=== PATIENT | male | born 1935 | race Caucasian/White ===

== ENCOUNTER 2024-03-24 20:42 | Inpatient (IN) | payer MEDICARE, SELFPAY ==
[2024-03-24] VITALS (7 sets, daily range): BP systolic 123–170; BP diastolic 71–105; BMI 23.2
--- NOTE | 2024-03-24 16:17 | ED.GENMED ---
History of Present Illness
General
Chief Complaint: Male Genito-Urinary Symptoms
Source: patient and family
Exam Limitations: none
Time Seen by Provider: 03/24/24 15:58
Nursing documentation reviewed up to this point in time: agreed with
Travel History
Have you had any contact with someone who has COVID-19?: No
Do you have any symptoms of coronavirus? Fever > 100 degrees, chills, cough, shortness of breath, sore throat, loss of taste or smell, muscle aches, or headache?: No
History of Present Illness
History of Present Illness:
Patient is an 88-year-old male with past medical history of prostate cancer with chronic Beach, chronic heart failure history of alcohol abuse anemia hip fracture hyperlipidemia hypertension anxiety pressure presents to the ER complaining of lower
abdominal pain and burning at the tip of the penis for past 4 days. No fevers denies back pain. he does feel that his beach catheter is draining normally
Patient lives alone. Daughter at bedside. Patient denies any fever chills nausea vomiting.
Past History
Past History
ED Past Medical History: Cancer (Prostate), HTN and Hypercholesterolemia
ED Past Surgical History: Other
Social History
Tobacco: Non-smoker
Alcohol: None
Drug: None
Personal:
Living: with family
Employment: Retired
Family History
Family History: Other
Review of Systems
Review of Systems
Allergies reviewed?: Yes
Other source history: family
All Other Systems: ROS reviewed and negative except as documented in HPI and ROS
Constitutional: Reports no symptoms; Denies fever, fatigue or chills
EENT: Reports no symptoms
Respiratory: Reports no symptoms
Cardiac: Reports no symptoms
ABD/GI: Reports abdominal pain (lower abdominal burning )
: Reports other (burning at tip of penis catheter site )
Skin: Reports no symptoms
Neurological: Reports no symptoms
Psychiatric: Reports no symptoms
Phy Exam
General Physical Exam
General Presentation: no apparent distress
General age: appears stated age
General Skin: warm and dry
General Habitus: normal
General Mental: alert
General Hydration: appears well hydrated
Cardiovascular Exam
Cardiovascular Exam: regular rate/rhythm, no murmur and normal peripheral pulses
Pulmonary Exam
Pulmonary Exam: lungs clear and no respiratory distress
Gastrointestinal Exam
Gastrointestinal Exam: soft and other (mild suprapubic tenderness )
Genitourinary Exam Male
Exam Male: circumcised and other (beach in place )
Neurological Exam
Neurological Exam: alert
Musculoskeletal Exam
Musculoskeletal Exam: full ROM
Skin Exam
Skin Exam: normal color and warm/dry
Psychiatric Exam
Psychiatric Exam: normal mood/affect
Course
Orders/Labs/Results
Orders:
Orders
03/24/24 Breakfast
Cholesterol Lowering
Cholesterol Lowering: Sodium, 2 Gram
03/24/24 16:18
CBC/With Diff [Complete Blood Count/With Diff] Urgent
CMP [Comprehensive Metabolic Panel] Urgent
Vitamin D, 25-Oh Urgent
03/24/24 16:50
Urine Culture Reflexed from UA [Urinalysis Reflex To Culture] Urgent
Date Specimen was Collected: 03/24/24
Time Specimen was Collected: 16:48
Urine Microscopic Reflex Cult Urgent
Urine Culture Urgent
AUTUMN Source: U
Specimen Description:
Date Specimen was Collected: 03/24/24
Time Specimen was Collected: 16:48
03/24/24 18:42
CefTRIAXone [Rocephin] 1,000 mg IV NOW STA
03/24/24 18:52
Lactic Acid Q4H
Comment: CANCEL 2nd LACTIC ACID IF 1st LACTIC ACID IS LESS THAN 2
Blood Culture Q30M
AUTUMN Source: Blood/Venous
Specimen Description:
Blood Culture Q30M
AUTUMN Source: Blood/Venous
Specimen Description:
03/24/24 19:26
0.9% Sodium Chloride 1000 ml [Nss] 1,000 ml IV BOLUS
03/24/24 20:09
Vitamin D, 25-OH Stat
03/24/24 20:12
Add On- LAB Urgent
Tests Added?: PTH/ vitamin d/25 OH
03/24/24 20:19
Admit/Transfer Patient As Directed
Co-Sign Provider:
Level of Care: Inpatient admission
Assign to:: Medical/Surgical
Physician / Group: [facility]
Diagnosis: UTI
Reason for Hospitalization: UTi
Expected length of stay greater than two midnights?: Yes
ELOS- Estimated Length of Stay in days: 3
I certify the patient meets the requirements for IP care: Yes
03/24/24 20:20
Code Status As Directed
Resuscitation Status: Full Code
03/24/24 22:00
PTH [Intact PTH Includes Calcium] Stat
03/24/24 22:26
0.9% Sodium Chloride 1000 ml [Nss] 1,000 ml IV 80 mls/hr
Acetaminophen [Tylenol] 650 mg PO Q4HPRN PRN
Bisacodyl [Dulcolax] 10 mg RECTAL [id number] PRN
Docusate W/Senna [Senokot-S] 1 tablet PO BIDPRN PRN
Polyethylene Glycol Powder [Miralax] 17 grams PO DAILYPRN PRN
03/24/24 22:26
Activity As Directed
Activity Level: As Tolerated
Vital Signs As Directed
Frequency: Per unit guidelines
DX Deep Vein Thrombosis Video Routine
03/24/24 22:45
Lactic Acid Q4H
Comment: CANCEL 2nd LACTIC ACID IF 1st LACTIC ACID IS LESS THAN 2
03/25/24 00:00
Cefepime HCl [Maxipime] 1,000 mg IV Q12H
03/25/24 06:00
Basic Metabolic Panel IN AM
Complete Blood Count/No Diff IN AM
Occupational Therapy Consult [Ot Eval And Treat] IN AM
Physical Therapy Consult [Pt Eval And Treat] IN AM
Activity Level: As Tolerated
03/25/24 08:00
Aspirin Low Dose EC [Aspir Low (Enteric Coated)] 81 mg PO DAILY
Carvedilol [Coreg] 3.125 mg PO BID
Heparin 5,000 units SC Q12
03/25/24 18:00
Atorvastatin [Lipitor] 10 mg PO QPM
03/26/24 06:00
Basic Metabolic Panel IN AM
Complete Blood Count/No Diff IN AM
03/27/24 06:00
Basic Metabolic Panel IN AM
Complete Blood Count/No Diff IN AM
03/28/24 06:00
Basic Metabolic Panel IN AM
Complete Blood Count/No Diff IN AM
03/29/24 06:00
Basic Metabolic Panel IN AM
Complete Blood Count/No Diff IN AM
Abnormal Lab Results
03/24/24 03/24/24 03/24/24
16:18 16:50 18:52
WBC 17.1 H 10^3/uL
(4.8-10.8)
RBC 4.63 L 10^6/uL
(4.70-6.10)
Plt Count 422 H 10^3/uL
(130-400)
Abs Immat Gran (auto) 0.1 H 10^3/uL
(0-0.05)
Absolute Neuts (auto) 14.8 H 10^3/uL
(1.4-6.5)
Absolute Lymphs (auto) 0.9 L 10^3/uL
(1.2-3.4)
Absolute Monos (auto) 1.3 H 10^3/uL
(0.1-0.6)
Neutrophils % 86.5 H %
(42.2-75.2)
Lymphocytes % 5.0 L %
(20.5-51.1)
Sodium 132 L mmol/L
(135-145)
Potassium 5.4 H mmol/L
(3.5-5.1)
Chloride 94 L mmol/L
(98-107)
BUN 29 H mg/dl
(9-20)
Creatinine 1.4 H mg/dL
(0.7-1.3)
Glucose 138 H mg/dl
(70-99)
Lactic Acid 2.6 H mmol/L
(0.7-2.0)
Calcium 11.0 H mg/dl
(8.4-10.2)
Urine Ketones Trace A
(Negative)
Ur Occult Blood Reflex 4+ A
(Negative)
Urine Nitrite (Reflex) Positive A
(Negative)
Leukocyte Esterase Rfl 2+ A
(Negative)
Urine RBC 30-40 A /HPF
(0-2)
Urine WBC (Reflex) 26-30 A /HPF
(0-5)
Urine Bacteria (Reflex) Moderate A
(Negative)
Urine Albumin (Reflex) 1+ A
(Neg - Trace)
03/24/24 16:18
03/24/24 16:18
Vital Signs
Initial and Last Documented VS:
Initial Vital Signs
Temp Pulse Resp BP Pulse Ox
98.4 F 111 18 139/95 98
03/24/24 13:27 03/24/24 13:27 03/24/24 13:27 03/24/24 13:27 03/24/24 13:27
Last Documented Vital Signs
Temp Pulse Resp BP Pulse Ox
98.3 F 91 24 123/80 98
03/24/24 22:39 03/24/24 22:39 03/24/24 22:39 03/24/24 22:39 03/24/24 22:39
[employer] consulted with Physician
[employer] consulted with physician?: Yes
Name of Physician Consulted: Nathan
MDM/Problems Addressed
Differential Diagnosis Includes:
not limited to: UTI , dehydration
MDM/Problems Addressed:
Patient is an 88 old male who presents to the ER complaining of burning at his penis where catheter site is and lower abdominal burning discomfort. Patient had 170 mL of urine in his bladder with his present Beach in place. New catheter was
inserted patient does have an obvious UTI. He is afebrile however his white count is elevated at 17,000. His BUN/creatinine is elevated which is a change from prior labs. Potassium of 5.4. I spoke with patient and his daughter. Patient is
having more more difficulty getting around daughter concern for falls. With UTI and infection with increased risk of falling will admit for IV antibiotics hydration and physical therapy
*Radiology
Radiology exam reviewed: radiology read reviewed
*Pulse Oximetry
Patient hypoxic: no
*Critical Care Note
Total Time (30-74mins, 75-104mins- exclusive of procedures): Not Applicable
ED Attending Note
-
Portions of this chart may have been created with voice recognition software.� Occasional wrong word or��sound alike� substitutions may have occurred due to the inherent limitations of voice recognition software.
Discharge Plan
Departure
Patient Disposition: Admit
Date of Disposition: 03/24/24
Time of Disposition: 18:43
Admit to: Med/Surg
Admit to doctor: hospitalist
Presentation/result/management discussed w/ accepting MD/DO: Hospitalist
Patient with high blood pressure during this ER visit?: Yes
Condition: Fair
Covid-19: Not Applicable
Discharge Problem:
Acute UTI, Acute dehydration
Interventions
Interventions:
*Risk Screen - Suicide Last Done: 03/24/24 13:27
*General Assessment Last Done: 03/24/24 13:27
*Neglect/Abuse Screening Last Done: 03/24/24 13:27
ED- Fall Risk Assessment Last Done: 03/24/24 15:44
*ED COVID-19 Vaccine History Last Done: 03/24/24 13:27
*Nursing Disposition Last Done: 03/24/24 22:18
ED-Male Genitourinary Assessment Last Done: 03/24/24 15:28
Discharge Date and Time
Discharge Date/Time: 03/24/24 22:19
[2024-03-24 16:46] LABS: % Basophils 0.4 % (0-2); % Immature Granulocytes 0.5 % (0-0.5); % Monocytes 7.6 % (1.7-9.3); % Neutrophils 86.5 % (42.2-75.2); Absolute Basophils 0.1 10^3/uL (0-0.2); Absolute Immature Granulocytes 0.1 10^3/uL (0-0.05); Absolute Lymphocytes 0.9 10^3/uL (1.2-3.4); Absolute Monocytes 1.3 10^3/uL (0.1-0.6); Absolute Neutrophils 14.8 10^3/uL (1.4-6.5); Hemoglobin 13.8 g/dL (13.0-18.0); Mean Corp Hgb Conc. 33.7 g/dL (33.0-37.0); Mean Corpuscular Hgb 29.8 pg (27.0-31.0); Mean Corpuscular Volume 88.6 fL (80.0-94.0); Mean Platelet Volume 8.9 fL (7.4-10.4); Nucleated Red Blood Cells % 0 % (-); Platelet Count 422 10^3/uL (130-400); Red Blood Cell Count 4.63 10^6/uL (4.70-6.10); Red Cell Dist. Width 14.4 % (11.5-14.5); White Blood Cell Count 17.1 10^3/uL (4.8-10.8)
[2024-03-24 16:58] LABS: ALT (SGPT) 19 U/L (0-50); AST (SGOT) 32 U/L (17-59); Albumin 4.2 g/dl (3.5-5.0); Alkaline Phosphatase 121 U/L (38-126); Blood Urea Nitrogen 29 mg/dl (9-20); Carbon Dioxide 27 mmol/L (22-30); Chloride 94 mmol/L (98-107); Glucose 138 mg/dl (70-99); Potassium 5.4 mmol/L (3.5-5.1); Sodium 132 mmol/L (135-145); Total Bilirubin 0.7 mg/dl (0.2-1.3); Total Protein 7.1 g/dl (6.3-8.2); eGFR 48.95
[2024-03-24 17:04] LABS: Urine Albumin 1+ (Neg - Trace); Urine Bilirubin Negative (Negative); Urine Character Very Cloudy (Clear); Urine Color Yellow; Urine Glucose Negative (Negative); Urine Ketone Trace (Negative); Urine Leukocyte 2+ (Negative); Urine Nitrite Positive (Negative); Urine Occult Blood 4+ (Negative); Urine Urobilinogen Negative (Neg - 1+)
[2024-03-24 17:17] LABS: Urine Amorphous Seen
[2024-03-24 17:18] LABS: Urine Bacteria Moderate (Negative); Urine Red Blood Cell 30-40 /HPF (0-2); Urine White Cell 26-30 /HPF (0-5)
[2024-03-24] MEDS: ROCEPHIN 1000 MG IV (18:53)
--- NOTE | 2024-03-24 19:11 | PHANOTE ---
03/24/2024, [employer] rec tech, spoke to pt.'s daughter to obtain pt.'s med. history; per daughter, pt. is prescribed Lisinopril 20 mg daily; however, pt. does not take this med. and it has been a long time since they have taken it.
[2024-03-24 19:19] LABS: Lactic Acid 2.6 mmol/L (0.7-2.0)
[2024-03-24] MEDS: NSS 1000 IV ×2 (19:27→23:28)
--- NOTE | 2024-03-24 19:49 | HPS.HSE ---
Family Physician
-
Family Physician: Whitney Myers MD
Chief Complaint
-
lower abdominal pain
History of Present Illness
88 year old with PMH for anxiety, prostate ca, CHF, anemia, HLD, htn presented to us with generalized weakness, sleeping more than usual, lower abdominal cramps associated with pain at the tip of penis for past four days. he has chronic beach cath.
he noticed cloudy urine in the Beach. he noticed pussy urine around the penis. patient also complained of diarrhea every other day. denied fever, chills, chest pain, sob. patient complained of SEGUNDO and dizzy. denied an/v.
positive UA in ER. gave a dose of ceftriaxone. admitting for further managment.
Medical History
Past Medical History
Past Medical History: Reports Other
Additional Past Medical History:
chronic pain
hld
depression
lumbar stenosis
htn
anxiety
squamous cell carcinoma
prostate ca
Past Surgical History: Reports Other
Additional Past Surgical History:
right knee replacemet
Social History
Tobacco: Former Smoker
Alcohol: Former
Drug: None
Personal: Single
Living: Alone
Family History
Family History: Not pertinent
Allergies / Home Medications
Allergies reflects when Allergies were last updated in [facility].
Home Medications with original date entered in [facility]
Allergy/Medication List:
Allergies
Allergy/AdvReac Type Severity Reaction Status Date / Time
No Known Drug Allergies Allergy Unknown Verified 03/24/24 13:27
Home Medications
Blanchard Xl 1 dose PO DAILYPRN PRN supplement 03/24/24
Prevagen 1 dose PO DAILYPRN PRN supplement 03/24/24
Total Beets Supplement 2 tab PO BID 03/24/24
Vitamin C 1 dose PO DAILYPRN PRN supplement 03/24/24
aspirin 325 mg tablet 325 mg PO DAILY PRN mild pain 03/24/24
aspirin 81 mg tablet,delayed release 81 mg PO DAILY 03/24/24
atorvastatin 10 mg tablet 10 mg PO QPM 03/24/24
bismuth subsalicylate 262 mg/15 mL oral suspension (Pepto-Bismol) 524 mg PO DAILYPRN PRN stomach issues 03/24/24
carvedilol 3.125 mg tablet 3.125 mg PO BID 03/24/24
cholecalciferol (vitamin D3) 1 dose PO DAILYPRN PRN supplement 03/24/24
docusate sodium 100 mg tablet (Stool Softener) 150 mg PO QPM 03/24/24
hydrocodone 5 mg-acetaminophen 300 mg tablet 1 - 2 tab PO Q6H PRN severe pain 03/24/24
iron 1 dose PO DAILYPRN PRN supplement 03/24/24
loratadine 10 mg tablet (Claritin) 10 mg PO DAILY 03/24/24
magnesium hydroxide 400 mg/5 mL oral suspension (Milk of Magnesia) 30 ml PO DAILY PRN constipation 03/24/24
multivitamin with minerals-folic acid 80 mcg chewable tablet (Centrum Adult 50 Plus) 1 tab PO DAILY 03/24/24
naphazoline 0.012 % eye drops 1 drp ophthalmic (eye) DAILYPRN PRN eye irritation 03/24/24
selenium 1 dose PO DAILYPRN PRN supplement 03/24/24
sennosides 8.6 mg tablet (senna) 17.2 mg PO BID 03/24/24
venlafaxine 225 mg tablet,extended release 24 hr 225 mg PO DAILY 03/24/24
Review of Systems
-
Constitutional: Reports No Symptoms
EENT: Reports No Symptoms
Respiratory: Reports No Symptoms
Cardiac: Reports No Symptoms
Abdomen/GI: Reports Abdominal Pain and Diarrhea
: Reports Dark Urine and Beach
Musculoskeletal: Reports No Symptoms
Skin: Reports No Symptoms
Neurological: Reports No Symptoms
Endocrine: Reports No Symptoms
Hematologic/Lymphatic: Reports No Symptoms
Psych: Reports No Symptoms
Physical Exam
Vital Signs
Vital Signs
Temp Pulse Resp BP Pulse Ox
97.6 F 93 18 162/71 98
03/24/24 15:28 03/24/24 18:05 03/24/24 18:05 03/24/24 18:05 03/24/24 18:05
Physical Exam
General: Well Developed, Well Nourished and No Apparent Distress
HEENT: NormoCephalic, Moist mucous membranes and Atraumatic
Respiratory: Clear
Cardiac: S1/S2 and Regular Rhythm; No Murmur or Rub
GI: Soft, Non Tender, Non Distended and Normal Bowel Sounds; No Organomegaly
Rectal: Deferred by Provider
Musculoskeletal: No Clubbing, No Cyanosis and No Edema
Skin: No Rash
Neuro: AO x 3 and Nonfocal/grossly intact
Psych: Calm
Laboratory Results
-
03/24/24 16:18
03/24/24 16:18
Laboratory Results
Lactic Acid 2.6 mmol/L (0.7-2.0) H 03/24/24 18:52
Total Bilirubin 0.7 mg/dl (0.2-1.3) 03/24/24 16:18
AST 32 U/L (17-59) 03/24/24 16:18
ALT 19 U/L (0-50) 03/24/24 16:18
Alkaline Phosphatase 121 U/L (38-126) 03/24/24 16:18
Data Reviewed
-
Lab Data: Labs Reviewed by me
Impression/Plan
-
#catheter associated urinary tract infection
#sepsis as evident by wbc 17.1, lactic 2.6
-normal saline continued
-blood and urine culture sent from ER
-iv ceftriaxone in ER
-will initiate on IV cefepime
-hxt of E coli, pseudomonas UTI
-Tylenol prn for fever
#generalized weakness likely from UTI
-PT/OT consulted
-will hold hydrocodone
#acute on chornic hyponatremia//hyperkalemia/acute kidney injury/hypercalcemia likely dehydration
-na 131, k 5.4, cr 1.4
-normal saline continued
-monitor BMp in am
-obtain PTH and vitamin D
#diarrhea likely viral
-obtain stool culture if continued to have diarrhea
#Chronic HFmrEF
-continue Coreg
#Prostate cancer status post Beach catheter placement
#Essential hypertension
-Coreg
#Hyperlipidemia: Cont statin
#Anxiety/Depression: Cont Effexor
#Ex-smoker
#full code
#DVT Prophylaxis
-heparin sq
--- NOTE | 2024-03-24 20:41 | W.PN.UPDATE ---
Update Note
Progress Note Update
This is an addendum to the H&P written by Alla Velázquez on 03/24/2024.
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
with burning with urination, lower abdominal pain for past few days with urinalysis consistent with catheter associated UTI.�
Check urine culture, blood cultures prior culture data shows prior Pseudomonas UTI, E. coli bacteremia sensitive to cefepime.� Labs show BIANKA, hypercalcemia, mild hyperkalemia.� Lopez catheter changed.� IV fluids, cefepime.� Check vitamin D, PTH
level to evaluate hypercalcemia.
[2024-03-24 21:32] LABS: Vitamin D, 25-OH*** 61.4 ng/mL (30-80)
--- NOTE | 2024-03-24 23:00 | PTCARENOTE ---
Pt transferred from ED with [facility]. Pt AAOX3, able to make needs known. Pt oriented to unit, call adams within reach. Will continue with current plan.
[2024-03-24] MEDS: STERILE WATER FOR INJECTION 10 ML IV (23:29)
[2024-03-24] MEDS: MAXIPIME 1000 MG IV (23:29)
[2024-03-24 23:42] LABS: Lactic Acid 1.1 mmol/L (0.7-2.0)
[2024-03-24 23:54] LABS: Calcium 9.9 mg/dl (8.4-10.2)
[2024-03-25 00:13] LABS: Vitamin D, 25-OH*** 64.7 ng/mL (30-80)
[2024-03-25 03:17] VITALS: BP 118/65
[2024-03-25 06:42] LABS: Hematocrit 35.1 % (39.0-52.0); Hemoglobin 11.5 g/dL (13.0-18.0); Mean Corp Hgb Conc. 32.8 g/dL (33.0-37.0); Mean Corpuscular Hgb 29.6 pg (27.0-31.0); Mean Corpuscular Volume 90.5 fL (80.0-94.0); Mean Platelet Volume 8.8 fL (7.4-10.4); Platelet Count 325 10^3/uL (130-400); Red Blood Cell Count 3.88 10^6/uL (4.70-6.10); Red Cell Dist. Width 14.6 % (11.5-14.5); White Blood Cell Count 10.8 10^3/uL (4.8-10.8)
[2024-03-25 07:17] LABS: Blood Urea Nitrogen 30 mg/dl (9-20); Calcium 9.8 mg/dl (8.4-10.2); Carbon Dioxide 24 mmol/L (22-30); Chloride 102 mmol/L (98-107); Estimated Creatinine Clearance 43 ml/min; Glucose 67 mg/dl (70-99); Potassium 4.1 mmol/L (3.5-5.1); Sodium 135 mmol/L (135-145)
[2024-03-25 07:46] VITALS: BP 136/64
[2024-03-25 08:37] LABS: Glucose - Point of Care 70 mg/dl (70-99)
[2024-03-25] MEDS: COREG 3.125 MG PO ×2 (08:37→19:57)
[2024-03-25] MEDS: HEPARIN 5000 UNITS SC ×2 (08:38→19:57)
[2024-03-25] MEDS: ASPIR LOW (ENTERIC COATED) 81 MG PO (08:38)
[2024-03-25] MEDS: EFFEXOR XR 225 MG PO (08:55)
[2024-03-25 10:36] VITALS: BMI 23.4
[2024-03-25 11:00] VITALS: BP 123/66; BP 98/85; PULSE 66; O2SAT 98
[2024-03-25 11:02] VITALS: BP 123/66; BP 98/85; O2SAT 98
[2024-03-25 11:41] LABS: Glucose - Point of Care 84 mg/dl (70-99)
[2024-03-25] MEDS: STERILE WATER FOR INJECTION 10 ML IV ×2 (12:08→23:28)
[2024-03-25] MEDS: NSS 1000 IV (12:08)
[2024-03-25] MEDS: MAXIPIME 1000 MG IV ×2 (12:20→23:28)
--- NOTE | 2024-03-25 13:17 | W.PN.HOSP.TC ---
Today's Communication/Plan
-
Monitor vital signs and see plan
Follow blood and urine culture
Monitor leukocytosis
Monitor renal function
Assessment / Plan
Assessment / Plan
General: Well Developed, Well Nourished and No Apparent Distress
HEENT: NormoCephalic, Moist mucous membranes and Atraumatic
Respiratory: Clear
Cardiac: S1/S2 and Regular Rhythm; No Murmur or Rub
GI: Soft, Non Tender, Non Distended and Normal Bowel Sounds; No Organomegaly
Rectal: Deferred by Provider
Musculoskeletal: No Clubbing, No Cyanosis and No Edema
Skin: No Rash
Neuro: AO x 3 and Nonfocal/grossly intact
Psych: Calm
catheter associated urinary tract infection
#severe sepsis as evident by wbc 17.1, lactic 2.6 2/2 above
-blood and urine culture pending
cw IV cefipime
-hxt of E coli, pseudomonas UTI
-Tylenol prn for fever
catheter exchanged on admission
#generalized weakness likely from UTI
-PT/OT consulted
-will hold hydrocodone
#acute on chornic hyponatremia//hyperkalemia/acute kidney injury/hypercalcemia likely dehydration
Monitor with fluids
Vitamin D normal, PTH pending
#Chronic HFmrEF
-continue Coreg
#Prostate cancer status post Lopez catheter placement
Follows up with Dr. Escalante outpatient
#Essential hypertension
-Coreg
#Hyperlipidemia: Cont statin
#Anxiety/Depression: Cont Effexor
#Ex-smoker
#full code
#DVT Prophylaxis
-heparin sq
I spent a total of 52 minutes with the patient or on the floor. More than 50% of this time involved counseling and coordination of care.
Anticipated Discharge: 24 - 48 hours
Subjective/Interval History
-
Date of Service: March 25, 2024
denies pain
Objective Data
-
Labs:
Laboratory Results
03/25/24
06:28
WBC 10.8
Hgb 11.5 L
Hct 35.1 L
Plt Count 325 D
Sodium 135
Potassium 4.1
Chloride 102
Carbon Dioxide 24
BUN 30 H
Creatinine 1.3
Glucose 67 L
Calcium 9.8
Vital Signs:
Vital Signs
Temp Pulse Resp BP Pulse Ox
97.9 F 77 18 136/64 96
03/25/24 07:46 03/25/24 07:46 03/25/24 07:46 03/25/24 07:46 03/25/24 07:46
I&O
03/24/24 03/25/24 03/26/24
06:59 06:59 06:59
Intake Total 200 / 200
Output Total 800 / 800
Balance -600 / -600
--- NOTE | 2024-03-25 15:23 | CM ---
Patient seen bedside, initial assessment completed. Patient resides in a multiple story home, four steps to enter. Patient resides independently, has a daughter and son nearby as support. Patient reports he has aids through [employer], 3 days a
week, assist with cleaning, cooking, etc. Patient has a rolling walker for ambulation. Patient reports he believes he has been to a SNF in the past, unsure where. Patient confirms PCP Whitney Myers, pharmacy [facility], [place], confirms prescription
coverage. Patient denies food insecurities at home. CM discussed PT recommendation of home health, patient agreebable, patient resides in [place], will send referrals to [facility].
Plan; home with VN, will send referrals to [place] [facility] through [facility].
[2024-03-25 15:50] VITALS: BP 141/71
[2024-03-25] MEDS: COLACE LIQUID 150 MG PO (17:00)
[2024-03-25] MEDS: LIPITOR 10 MG PO (17:01)
[2024-03-25] MEDS: NORCO 5/325 1 TABLET PO ×2 (17:02→23:28)
[2024-03-25] MEDS: SENOKOT 17.1999999999999993 MG PO (19:57)
[2024-03-25 23:00] VITALS: BP 137/68
[2024-03-26] MEDS: NSS 1000 IV (00:10)
[2024-03-26 00:35] VITALS: BP 137/68
[2024-03-26 04:10] LABS: Glucose - Point of Care 75 mg/dl (70-99)
[2024-03-26 05:42] VITALS: BMI 24.1
--- NOTE | 2024-03-26 06:18 | PTCARENOTE ---
pt blood sugar check was 75 at 4am. pt provided w/ snack. pt states he feels fine. pt has labs in am
[2024-03-26 06:20] LABS: % Basophils 0.7 % (0-2); % Eosinophils 1.6 % (0-6); % Immature Granulocytes 0.4 % (0-0.5); % Lymphocytes 14.4 % (20.5-51.1); % Monocytes 9.9 % (1.7-9.3); Absolute Basophils 0.1 10^3/uL (0-0.2); Absolute Eosinophils 0.1 10^3/uL (0-0.7); Absolute Lymphocytes 1.1 10^3/uL (1.2-3.4); Absolute Monocytes 0.7 10^3/uL (0.1-0.6); Absolute Neutrophils 5.4 10^3/uL (1.4-6.5); Hematocrit 33.3 % (39.0-52.0); Hemoglobin 10.7 g/dL (13.0-18.0); Mean Corp Hgb Conc. 32.1 g/dL (33.0-37.0); Mean Corpuscular Hgb 29.4 pg (27.0-31.0); Mean Corpuscular Volume 91.5 fL (80.0-94.0); Mean Platelet Volume 9.2 fL (7.4-10.4); Nucleated Red Blood Cells % 0 % (-); Platelet Count 317 10^3/uL (130-400); Red Blood Cell Count 3.64 10^6/uL (4.70-6.10); Red Cell Dist. Width 14.7 % (11.5-14.5); White Blood Cell Count 7.4 10^3/uL (4.8-10.8)
[2024-03-26] MEDS: NORCO 5/325 1 TABLET PO ×2 (06:38→11:47)
[2024-03-26 06:51] LABS: Blood Urea Nitrogen 31 mg/dl (9-20); Calcium 9.3 mg/dl (8.4-10.2); Carbon Dioxide 26 mmol/L (22-30); Chloride 102 mmol/L (98-107); Estimated Creatinine Clearance 51 ml/min; Glucose 102 mg/dl (70-99); Potassium 4.3 mmol/L (3.5-5.1); Sodium 135 mmol/L (135-145); eGFR > 60.00
[2024-03-26 07:00] VITALS: BP 169/85
[2024-03-26 07:20] LABS: Glucose - Point of Care 89 mg/dl (70-99)
[2024-03-26] MEDS: EFFEXOR XR 225 MG PO (08:15)
[2024-03-26] MEDS: HEPARIN 5000 UNITS SC ×2 (08:15→22:13)
[2024-03-26] MEDS: ASPIR LOW (ENTERIC COATED) 81 MG PO (08:15)
[2024-03-26] MEDS: SENOKOT 17.1999999999999993 MG PO ×2 (08:16→22:14)
[2024-03-26] MEDS: COREG 3.125 MG PO ×2 (08:18→22:15)
[2024-03-26 12:11] LABS: Intact PTH 84.6 pg/ml (13.6-85.8)
[2024-03-26 12:17] LABS: Glucose - Point of Care 96 mg/dl (70-99)
[2024-03-26] MEDS: MAXIPIME 1000 MG IV (12:45)
[2024-03-26] MEDS: STERILE WATER FOR INJECTION 10 ML IV (12:46)
--- NOTE | 2024-03-26 13:01 | W.PN.HOSP.TC ---
Today's Communication/Plan
-
Monitor vital signs see plan
Awaiting final speciation for urine culture
Continue with antibiotics
PT/OT
Assessment / Plan
Assessment / Plan
General: Well Developed, Well Nourished and No Apparent Distress
HEENT: NormoCephalic, Moist mucous membranes and Atraumatic
Respiratory: Clear
Cardiac: S1/S2 and Regular Rhythm; No Murmur or Rub
GI: Soft, Non Tender, Non Distended and Normal Bowel Sounds; No Organomegaly
Musculoskeletal: No Edema
Neuro: AO x 3 and Nonfocal/grossly intact
Psych: Calm
catheter associated urinary tract infection
#severe sepsis as evident by wbc 17.1, lactic 2.6 2/2 above
-blood cx NGTD; urine cx growing gram neg rods
cw IV cefipime
-hxt of E coli, pseudomonas UTI
-Tylenol prn for fever
catheter exchanged on admission
#generalized weakness likely from UTI
-PT/OT following
#acute on chronic hyponatremia//hyperkalemia/acute kidney injury/hypercalcemia likely dehydration
Monitor with fluids
Vitamin D normal, PTH pending
#Chronic HFmrEF
-continue Coreg
#Prostate cancer status post Lopez catheter placement
Follows up with Dr. Escalante outpatient
Chronic pain
Continue with hydrocodone
#Essential hypertension
-Coreg
#Hyperlipidemia: Cont statin
#Anxiety/Depression: Cont Effexor
#Ex-smoker
#full code
#DVT Prophylaxis
-heparin sq
Anticipated Discharge: Within 24 hours
Subjective/Interval History
-
Date of Service: March 26, 2024
Denies pain
Objective Data
-
Labs:
Laboratory Results
03/26/24
05:13
WBC 7.4
Hgb 10.7 L
Hct 33.3 L
Plt Count 317
Sodium 135
Potassium 4.3
Chloride 102
Carbon Dioxide 26
BUN 31 H
Creatinine 1.1
Glucose 102 H
Calcium 9.3
Vital Signs:
Vital Signs
Temp Pulse Resp BP Pulse Ox
98.1 F 75 18 169/89 97
03/26/24 07:00 03/26/24 08:18 03/26/24 07:00 03/26/24 08:18 03/26/24 07:00
I&O
03/25/24 03/26/24 03/27/24
06:59 06:59 06:59
Intake Total 200 / 200 3040 / 3040
Output Total 800 / 800 805 / 805
Balance -600 / -600 2235 / 2235
--- NOTE | 2024-03-26 13:48 | PN.CDI ---
CDI
- -
CDI:
Physician Documentation Request
Admit Date: 03/24/24 20:42
Dear Doctor Dionicio,
Patient admitted with severe sepsis.
03/24 Nursing skin assessment, 'Stage 2 sacral pressure injury, POA.'
Physician documentation of the type and location of wounds is required for compliant documentation. Based on the above clinical findings and your assessment, please provide the following in your progress note:
Type (etiology) of ulcer/wound:
- Pressure (decubitus) ulcer
- Other
- Unable to determine
For a pressure ulcer, please also include the stage* of the ulcer:
- Stage 1 - Skin intact, non-blanchable redness
- Stage 2 - Partial thickness loss of dermis, includes intact or open blister
- Stage 3 - Full thickness tissue not including bone, tendon or muscle
- Stage 4 - Full thickness tissue loss, including exposed bone, tendon or muscle
- Unstageable - Full thickness loss in which the base of the ulcer is covered by slough (yellow, hairston, rand, green or brown) and/or eschar (hairston, brown or black) in the wound bed.
- Unable to determine
Use of terms such as suspected, likely, concern for, or probable (associated with a specific diagnosis that is being evaluated, monitored, or treated as if it exists) are acceptable and can be coded in the inpatient setting, when documented at the
time of discharge.
Thank you,
Chantal AHMADI,RN,CCDS
CDI Specialist
Available via [facility] text
Please use your independent medical judgment in providing your response.
*Source: National Pressure Ulcer Advisory Panel (NPUAP)
--- NOTE | 2024-03-26 14:38 | CM ---
Patient seen bedside with . reports patient has VN once a month to assist with beach care, has had PT from them in the past, believe it is through [facility]. CM will send referral for VN. reports patient has a caregiver 3 days a
week who they private pay for. Patients requesting update from nurse, updated nurse with request. CM will continue to follow for discharge planning needs.
Plan; home with VN, confirming agency is [facility].
[2024-03-26 15:00] VITALS: BP 145/78
[2024-03-26 16:07] LABS: Glucose - Point of Care 127 mg/dl (70-99)
[2024-03-26] MEDS: LIPITOR 10 MG PO (17:16)
[2024-03-26] MEDS: COLACE LIQUID 150 MG PO (17:16)
[2024-03-26 23:00] VITALS: BP 137/87
[2024-03-27] MEDS: MAXIPIME 1000 MG IV ×2 (00:52→13:40)
[2024-03-27] MEDS: STERILE WATER FOR INJECTION 10 ML IV ×2 (00:52→13:42)
[2024-03-27 05:35] LABS: % Basophils 0.9 % (0-2); % Immature Granulocytes 0.6 % (0-0.5); % Lymphocytes 14.8 % (20.5-51.1); % Monocytes 9.9 % (1.7-9.3); % Neutrophils 71.8 % (42.2-75.2); Absolute Basophils 0.1 10^3/uL (0-0.2); Absolute Eosinophils 0.1 10^3/uL (0-0.7); Absolute Monocytes 0.7 10^3/uL (0.1-0.6); Absolute Neutrophils 5.1 10^3/uL (1.4-6.5); Hematocrit 32.7 % (39.0-52.0); Mean Corp Hgb Conc. 33.6 g/dL (33.0-37.0); Mean Corpuscular Hgb 29.8 pg (27.0-31.0); Mean Corpuscular Volume 88.6 fL (80.0-94.0); Mean Platelet Volume 8.9 fL (7.4-10.4); Nucleated Red Blood Cells % 0 % (-); Platelet Count 300 10^3/uL (130-400); Red Blood Cell Count 3.69 10^6/uL (4.70-6.10); Red Cell Dist. Width 14.3 % (11.5-14.5)
[2024-03-27 06:00] LABS: Blood Urea Nitrogen 18 mg/dl (9-20); Calcium 9.4 mg/dl (8.4-10.2); Carbon Dioxide 28 mmol/L (22-30); Chloride 102 mmol/L (98-107); Estimated Creatinine Clearance 71 ml/min; Glucose 85 mg/dl (70-99); Potassium 4.1 mmol/L (3.5-5.1); Sodium 133 mmol/L (135-145); eGFR > 60.00
[2024-03-27 07:00] VITALS: BP 170/91
[2024-03-27] MEDS: EFFEXOR XR 225 MG PO (08:06)
[2024-03-27] MEDS: SENOKOT 17.1999999999999993 MG PO (08:06)
[2024-03-27] MEDS: ASPIR LOW (ENTERIC COATED) 81 MG PO (08:07)
[2024-03-27] MEDS: HEPARIN 5000 UNITS SC (08:07)
[2024-03-27] MEDS: NORCO 5/325 2 TABLET PO ×2 (08:25→14:48)
[2024-03-27 11:00] VITALS: BP 167/80
--- NOTE | 2024-03-27 11:27 | W.PN.HOSP.TC ---
Today's Communication/Plan
-
Monitor vital signs
see plan
Change antibiotics to oral on discharge
Time of discharge 38 minutes
Assessment / Plan
Assessment / Plan
General: Well Developed, Well Nourished and No Apparent Distress
HEENT: NormoCephalic, Moist mucous membranes and Atraumatic
Respiratory: Clear
Cardiac: S1/S2 and Regular Rhythm; No Murmur or Rub
GI: Soft, Non Tender, Non Distended and Normal Bowel Sounds; No Organomegaly
Musculoskeletal: No Edema
Neuro: AO x 3 and Nonfocal/grossly intact
Psych: Calm
catheter associated urinary tract infection
#severe sepsis as evident by wbc 17.1, lactic 2.6 2/2 above
-blood cx NGTD; urine cx grew E. coli. Change antibiotics to cefdinir on discharge
cw IV cefepime
-hxt of E coli, pseudomonas UTI
-Tylenol prn for fever
catheter exchanged on admission
#generalized weakness likely from UTI
-PT/OT following; ok for home
#acute on chronic hyponatremia//hyperkalemia/acute kidney injury/hypercalcemia likely dehydration
Monitor with fluids
Vitamin D normal, PTH wnl
#Chronic HFmrEF
-continue Coreg
#Prostate cancer status post Lopez catheter placement
Follows up with Dr. Escalante outpatient
Chronic pain
Continue with hydrocodone
Stage 2 sacral pressure injury, POA.
#Essential hypertension
-Coreg
#Hyperlipidemia: Cont statin
#Anxiety/Depression: Cont Effexor
#Ex-smoker
#full code
#DVT Prophylaxis
-heparin sq
Anticipated Discharge: Today
Subjective/Interval History
-
Date of Service: March 27, 2024
Denies pain
Objective Data
-
Labs:
Laboratory Results
03/27/24
05:00
WBC 7.0
Hgb 11.0 L
Hct 32.7 L
Plt Count 300
Sodium 133 L
Potassium 4.1
Chloride 102
Carbon Dioxide 28
BUN 18
Creatinine 0.8
Glucose 85
Calcium 9.4
Vital Signs:
Vital Signs
Temp Pulse Resp BP Pulse Ox
98.0 F 86 18 170/91 96
03/27/24 07:00 03/27/24 07:00 03/27/24 07:00 03/27/24 07:00 03/27/24 07:00
I&O
03/26/24 03/27/24 03/28/24
06:59 06:59 06:59
Intake Total 3040 / 3040 1350 / 1350
Output Total 805 / 805 3400 / 3400
Balance 2234 / 2234 -2049 / -2049
--- NOTE | 2024-03-27 11:35 | W.DCSUMMARY ---
Discharge Summary
Discharge Data
Date of Admission: 03/24/24
Date of Discharge: 03/27/24
-
Pending Results: No
Hospital Course
88-year-old male with past medical history of chronic catheter, prostate cancer, chronic pain, essential hypertension, hyperlipidemia, anxiety, depression came to the hospital with severe sepsis secondary catheter associated urinary tract infection.
Patient was initially started on IV antibiotics which was later transitioned to oral prior to discharge. Urine culture grew E. coli. Patient also had generalized weakness which was likely thought was secondary to urinary tract infection. Patient
was seen by physical therapy who recommended home health. On admission patient also had acute kidney injury along with hypercalcemia which was likely thought was secondary to dehydration. Patient symptoms and labs continue to improve with
hydration. Once patient symptoms were improving and he was transitioned to oral antibiotics, he was then discharged home with instructions to follow-up with all his physicians outpatient
Discharge Plan
-
Patient Disposition: Home (Routine Discharge)
Discharge Diagnosis/Procedures: Complicated catheter associated urinary tract infection
Severe sepsis
Amatory dysfunction
Acute kidney injury
Hypercalcemia
Condition: Good
Diet: As tolerated
Activity: As tolerated
Driving Restrictions: As prior to admission
Bathing Restrictions: None
Activity Restrictions/Additional Instructions:
Please follow-up with your urologist outpatient
Referrals:
Whitney Myers MD [Family Provider] - in less than 1 week
Prescriptions:
New
cefdinir 300 mg capsule
300 mg PO BID Qty: 16 0RF
Continued
sennosides [senna] 8.6 mg Tablet
17.2 mg PO BID
atorvastatin 10 mg Tablet
10 mg PO QPM
naphazoline 0.012 % Drops
1 drp ophthalmic (eye) DAILYPRN PRN (Reason: eye irritation)
Patient Comments:
03/24/2024, both eyes.
aspirin 81 mg Tablet,Delayed Release (Dr/Ec)
81 mg PO DAILY
carvedilol 3.125 mg Tablet
3.125 mg PO BID
magnesium hydroxide [Milk of Magnesia] 400 mg/5 mL Suspension
30 ml PO DAILY PRN (Reason: constipation)
bismuth subsalicylate [Pepto-Bismol] 262 mg/15 mL Suspension
524 mg PO DAILYPRN PRN (Reason: stomach issues)
docusate sodium [Stool Softener] 100 mg Tablet
150 mg PO QPM
loratadine [Claritin] 10 mg Tablet
10 mg PO DAILY
hydrocodone-acetaminophen 5-300 mg Tablet
1 - 2 tab PO Q6H PRN (Reason: severe pain)
venlafaxine 225 mg Tablet Extended Release 24hr
225 mg PO DAILY
Centrum Adult 50 Plus 80 mcg Tablet,Chewable
1 tab PO DAILY
[place] Xl
1 dose PO DAILYPRN PRN (Reason: supplement)
Prevagen
1 dose PO DAILYPRN PRN (Reason: supplement)
Total Beets Supplement
2 tab PO BID
Vitamin C
1 dose PO DAILYPRN PRN (Reason: supplement)
cholecalciferol (vitamin D3)
1 dose PO DAILYPRN PRN (Reason: supplement)
iron
1 dose PO DAILYPRN PRN (Reason: supplement)
selenium
1 dose PO DAILYPRN PRN (Reason: supplement)
Discontinued
aspirin 325 mg Tablet
325 mg PO DAILY PRN (Reason: mild pain)
Discharge Orders:
Discharge Patient (As Directed); Ordered 03/27/24
Ordered By: Haseeb Greenberg
Discharge Date and Time
Discharge Date/Time: 03/27/24 16:08
Print Language: DANISH
--- NOTE | 2024-03-27 12:00 | CM ---
Patient seen bedside, discussed plan for discharge home today. [facility] IMM reviewed, signed, placed in patients chart. Patient reports he will make transportation arrangements. CM will continue to follow
for discharge planning needs.
Plan[facility] FAX: [phone]
[2024-03-27] MEDS: COREG 3.125 MG PO (13:40)
[2024-03-27 16:00] VITALS: BP 153/92
--- NOTE | 2024-03-27 16:57 | PTCARENOTE ---
rn fow body designer- Called to [facility] pharmacy to change pharmacy pickling machine operator to the [facility] in [place] rather than [place]. As per pharmacist will be ready in 30 minute. Attempted to call patient at home, but no answer.
--- NOTE | 2024-03-27 17:07 | PTCARENOTE ---
Rn flow reel system operator-Called to daughter about antibiotic and she states that patient doesn't drive and that she would pick medication up in [facility]. Called back to the pharmacy and informed them of change. They said they will have it filled in
30 minutes in [place].
== END 2024-03-27 16:08 | disposition home health service (06) | DRG 698 ==
LOC: 4 WEST ACU 20:42
PROVIDERS: Nurse Practitioner; Registered Nurse; ADMITTING PHYSICIAN Hospitalist; ATTENDING PHYSICIAN Internal Medicine; EMERGENCY PHYSICIAN Emergency Medicine; FAMILY PHYSICIAN Family Medicine
DX: T83.518A Infection and inflammatory reaction due to other urinary catheter, initial encounter (principal); A41.9 Sepsis, unspecified organism; R65.20 Severe sepsis without septic shock; I50.22 Chronic systolic (congestive) heart failure; N39.0 Urinary tract infection, site not specified; E87.1 Hypo-osmolality and hyponatremia; N17.9 Acute kidney failure, unspecified; Y84.6 Urinary catheterization as the cause of abnormal reaction of the patient, or of later complication, without mention of misadventure at the time of the procedure; I11.0 Hypertensive heart disease with heart failure; E78.00 Pure hypercholesterolemia, unspecified; E87.5 Hyperkalemia; E83.52 Hypercalcemia; E86.0 Dehydration; L89.152 Pressure ulcer of sacral region, stage 2; R19.7 Diarrhea, unspecified; B96.20 Unspecified Escherichia coli [E. coli] as the cause of diseases classified elsewhere; B96.5 Pseudomonas (aeruginosa) (mallei) (pseudomallei) as the cause of diseases classified elsewhere; G89.29 Other chronic pain; M48.061 Spinal stenosis, lumbar region without neurogenic claudication; F32.A Depression, unspecified; F41.9 Anxiety disorder, unspecified; Z79.82 Long term (current) use of aspirin; Z79.899 Other long term (current) drug therapy; Z85.46 Personal history of malignant neoplasm of prostate; Z87.891 Personal history of nicotine dependence
CPT/HCPCS: 51702; 80048; 80053; 81003; 81015; 82306; 82962; 83605; 83970; 85025; 85027; 87040; 87077; 87086; 87186; 96361; 96374; 97110; 97162; 97166; 99285

== ENCOUNTER 2024-05-05 17:43 | Observation (INO) | payer MEDICARE, SELFPAY ==
[2024-05-05] VITALS (11 sets, daily range): BP systolic 96–167; BP diastolic 72–93; PULSE 84; BMI 22.4
[2024-05-05 12:50] LABS: Urine Albumin 1+ (Neg - Trace); Urine Bilirubin Negative (Negative); Urine Character Very Cloudy (Clear); Urine Color Yellow; Urine Glucose Negative (Negative); Urine Ketone 1+ (Negative); Urine Leukocyte 2+ (Negative); Urine Nitrite Negative (Negative); Urine Occult Blood 2+ (Negative); Urine Urobilinogen Negative (Neg - 1+)
[2024-05-05 12:52] LABS: % Basophils 0.6 % (0-2); % Eosinophils 0.4 % (0-6); % Immature Granulocytes 0.6 % (0-0.5); % Lymphocytes 6.1 % (20.5-51.1); % Monocytes 8.7 % (1.7-9.3); % Neutrophils 83.6 % (42.2-75.2); Absolute Basophils 0.1 10^3/uL (0-0.2); Absolute Immature Granulocytes 0.1 10^3/uL (0-0.05); Absolute Lymphocytes 0.7 10^3/uL (1.2-3.4); Absolute Neutrophils 9.2 10^3/uL (1.4-6.5); Hematocrit 38.8 % (39.0-52.0); Hemoglobin 12.9 g/dL (13.0-18.0); Mean Corp Hgb Conc. 33.2 g/dL (33.0-37.0); Mean Corpuscular Hgb 29.3 pg (27.0-31.0); Mean Corpuscular Volume 88.2 fL (80.0-94.0); Mean Platelet Volume 9.1 fL (7.4-10.4); Nucleated Red Blood Cells % 0 % (-); Platelet Count 383 10^3/uL (130-400); Red Cell Dist. Width 14.5 % (11.5-14.5)
[2024-05-05 13:04] LABS: Urine Bacteria Many (Negative); Urine Red Blood Cell None Seen /HPF (0-2); Urine White Cell >100 /HPF (0-5)
--- NOTE | 2024-05-05 13:18 | ED.MUSCINJ ---
HPI-Injury
General
Chief Complaint: Fall
Time Seen by Provider: 05/05/24 12:38
History of Present Illness-Injury
Initial Injury comments:
88-year-old male with history of prostate cancer with chronic indwelling Lopez, hypertension, hyperlipidemia, depression, anxiety presenting to the emergency department for generalized weakness. Patient reports the past 3 days has been feeling
generally weak. He notes that he fell, landing on his buttock with subsequent pain. Denies any head injury. He is not on any blood thinners. Notes recent admission to the hospital, 03/27 for sepsis from urinary tract infection. Reports that his
Lopez catheter has been draining without issue. Denies any abdominal pain. Denies any fever. Denies any chest pain. Does note some shortness of breath with cough, which has been ongoing for months, production of mucus. Denies any swelling to
his lower extremities. Upon discharge from the hospital, patient has been getting home health care daily. He ambulates with a walker at home. Denies any additional injuries from the fall. Denies numbness or tingling to his extremities. Denies
additional acute medical complaints
Past History
Past History
ED Past Medical History: Cancer (Prostate), HTN and Hypercholesterolemia
ED Past Surgical History: Other
Social History
Tobacco: Non-smoker
Alcohol: None
Drug: None
Personal:
Living: with family
Employment: Retired
Family History
Family History: Other
Phy Exam
Physical Exam
Physical Exam:
GENERAL: Alert , in no apparent distress
EYE: pupils equal and reactive
NECK: Supple, no significant adenopathy, no tenderness to the cervical spine
ENT: o/p clr, mmm.
CARDIAC: Regular rate and rhythm .
LUNGS: Clear breath sounds bilaterally, no acute respiratory distress, no wheezes/rales/rhonchi
ABDOMEN: Soft, without focal tenderness, no r/g, no cvat
: Lopez catheter in place
NEUROLOGICAL: Alert and oriented, no focal neuro deficits
SKIN: Warm and dry, skin intact.
MUSCULOSKELETAL: No edema, well perfused. Moving extremities equally. Tenderness to the coccyx. Otherwise no tenderness to the midline spine
PSYCH: Normal and appropriate interaction.
Injury Course
Orders/Labs/Results
Orders:
Orders
05/05/24 12:34
Chest X-ray Portable [CR Chest Portable - 1 View] Urgent
Comment:
Reason For Exam: crackles
Reason Study Needs to be Portable: Patient Unstable
05/05/24 12:39
Complete Blood Count/With Diff Urgent
Comprehensive Metabolic Panel Urgent
UA Reflex to Culture [Urinalysis Reflex To Culture] Urgent
Date Specimen was Collected: 05/05/24
Time Specimen was Collected: 12:32
Urine Microscopic Reflex Cult Urgent
Urine Culture Urgent
AUTUMN Source: U
Specimen Description:
Date Specimen was Collected: 05/05/24
Time Specimen was Collected: 12:32
05/05/24 13:16
Acetaminophen [Tylenol] 650 mg PO NOW STA
Coccyx/Sacrum, 2 View CR [CR Sacrum/coccyx Min 2 View] Urgent
Comment:
Reason For Exam: pain after fall
05/05/24 13:17
Pelvis, 1 or 2 Views CR [CR Pelvis - 1 Or 2 Views ] Urgent
Comment:
Reason For Exam: fall
05/05/24 14:42
Case Management Consult ONCE
Case Management Consult: Mcc Placement
05/05/24 15:56
OT Consult [Ot Eval And Treat] Urgent
Pt Eval And Treat Urgent
Activity Level: With Assistance
Abnormal Lab Results
05/05/24
12:39
WBC 11.0 H 10^3/uL
(4.8-10.8)
RBC 4.40 L 10^6/uL
(4.70-6.10)
Hgb 12.9 L g/dL
(13.0-18.0)
Hct 38.8 L %
(39.0-52.0)
Abs Immat Gran (auto) 0.1 H 10^3/uL
(0-0.05)
Absolute Neuts (auto) 9.2 H 10^3/uL
(1.4-6.5)
Absolute Lymphs (auto) 0.7 L 10^3/uL
(1.2-3.4)
Absolute Monos (auto) 1.0 H 10^3/uL
(0.1-0.6)
Immature Gran % 0.6 H %
(0-0.5)
Neutrophils % 83.6 H %
(42.2-75.2)
Lymphocytes % 6.1 L %
(20.5-51.1)
Sodium 134 L mmol/L
(135-145)
Chloride 97 L mmol/L
(98-107)
Glucose 155 H mg/dl
(70-99)
Calcium 10.3 H mg/dl
(8.4-10.2)
Urine Ketones 1+ A
(Negative)
Ur Occult Blood Reflex 2+ A
(Negative)
Leukocyte Esterase Rfl 2+ A
(Negative)
Urine WBC (Reflex) >100 A /HPF
(0-5)
Urine Bacteria (Reflex) Many A
(Negative)
Urine Albumin (Reflex) 1+ A
(Neg - Trace)
05/05/24 12:39
05/05/24 12:39
MDM/Problems Addressed
MDM/Problems Addressed:
88-year-old male with history of prostate CA with chronic indwelling Lopez, hypertension, hyperlipidemia, depression and anxiety presenting for generalized weakness and a fall. Vital signs are normal.
On exam, patient is well-appearing, awake, alert, oriented. No physical signs of trauma. No signs of head trauma. Patient moving all extremities equally. No focal weakness or concern for central neurologic process. Suspect possible metabolic
process versus infectious process. Patient not meeting SIRS criteria, without concern for sepsis. Patient with known history of chronic indwelling Lopez catheter with recent sepsis from urinary source. Will check urinalysis. Will also check
electrolyte panel. Patient has been having chronic cough, will obtain chest x-ray imaging to evaluate for pulmonary component. Regarding fall, patient is having some pain to the coccyx region, suspected bruising versus fracture. Will obtain x-ray
imaging of the coccyx and the pelvis. Tylenol administered for pain.
15:00 -patient's workup is grossly unremarkable. Imaging without fracture. No sign of pneumonia. Daughter arrived, difficulty caring for patient at home, will consult with social work for potential placement
16:00 -Per social work, will require PT/OT and authorization, recommending observation admission for placement. Will admit
*Critical Care Note
Total Time (30-74mins, 75-104mins- exclusive of procedures): Not Applicable
ED Attending Note
-
Portions of this chart may have been created with voice recognition software.� Occasional wrong word or��sound alike� substitutions may have occurred due to the inherent limitations of voice recognition software.
Discharge Plan
Departure
Prescriptions:
No Action
sennosides [senna] 8.6 mg Tablet
17.2 mg PO BID
atorvastatin 10 mg Tablet
10 mg PO QPM
naphazoline 0.012 % Drops
1 drp ophthalmic (eye) DAILYPRN PRN (Reason: eye irritation)
Patient Comments:
03/24/2024, both eyes.
aspirin 81 mg Tablet,Delayed Release (Dr/Ec)
81 mg PO DAILY
carvedilol 3.125 mg Tablet
3.125 mg PO BID
magnesium hydroxide [Milk of Magnesia] 400 mg/5 mL Suspension
30 ml PO DAILY PRN (Reason: constipation)
bismuth subsalicylate [Pepto-Bismol] 262 mg/15 mL Suspension
524 mg PO DAILYPRN PRN (Reason: stomach issues)
docusate sodium [Stool Softener] 100 mg Tablet
150 mg PO QPM
loratadine [Claritin] 10 mg Tablet
10 mg PO DAILY
hydrocodone-acetaminophen 5-300 mg Tablet
1 - 2 tab PO Q6H PRN (Reason: severe pain)
venlafaxine 225 mg Tablet Extended Release 24hr
225 mg PO DAILY
Centrum Adult 50 Plus 80 mcg Tablet,Chewable
1 tab PO DAILY
[place] Xl
1 dose PO DAILYPRN PRN (Reason: supplement)
Prevagen
1 dose PO DAILYPRN PRN (Reason: supplement)
Total Beets Supplement
2 tab PO BID
Vitamin C
1 dose PO DAILYPRN PRN (Reason: supplement)
cholecalciferol (vitamin D3)
1 dose PO DAILYPRN PRN (Reason: supplement)
iron
1 dose PO DAILYPRN PRN (Reason: supplement)
selenium
1 dose PO DAILYPRN PRN (Reason: supplement)
cefdinir 300 mg capsule
300 mg PO BID Qty: 16 0RF
Referrals:
Whitney Myers MD [Family Provider] -
Interventions
Interventions:
*Risk Screen - Suicide Last Done: 05/05/24 11:21
*General Assessment Last Done: 05/05/24 11:21
*Neglect/Abuse Screening Last Done: 05/05/24 11:21
ED-Musculoskeletal Assessment Last Done: 05/05/24 12:50
ED- Neurological Assessment Last Done: 05/05/24 12:50
ED-Skin Assessment Last Done: 05/05/24 12:50
Discharge Date and Time
Print Language: PALAUAN
[2024-05-05 13:22] LABS: ALT (SGPT) 21 U/L (0-50); AST (SGOT) 37 U/L (17-59); Alkaline Phosphatase 113 U/L (38-126); Blood Urea Nitrogen 20 mg/dl (9-20); Calcium 10.3 mg/dl (8.4-10.2); Carbon Dioxide 26 mmol/L (22-30); Chloride 97 mmol/L (98-107); Glucose 155 mg/dl (70-99); Potassium 4.5 mmol/L (3.5-5.1); Sodium 134 mmol/L (135-145); Total Protein 6.8 g/dl (6.3-8.2); eGFR > 60.00
[2024-05-05] MEDS: TYLENOL 650 MG PO (13:27)
--- NOTE | 2024-05-05 16:02 | CM ---
Alert awake forgetful [place] patient who lives who lives alone in a 2 story home with 5 step to enter and bed and bathroom on first floor. He is assisted in all activities of daily living.Daughter Jillian present [phone] she said he has fallen 6 x
in 4 weeks. He [phone] Toussaint and RN Jerri aware pt needs PT OT evals and if appropriate will need SNF referral and auth. Pt uses a walker and has chronic Lopez.
[facility] / [facility] history
Pharmacy [facility]
PCP DR Whitney Myers
PLAN Will need PT OT for dc planning
--- NOTE | 2024-05-05 16:59 | HPS.HSE ---
Family Physician
-
Family Physician: Whitney Myers MD
Chief Complaint
-
falls, unable to care for self, for palcement
History of Present Illness
88m with history of prostate cancer with chronic indwelling [place], hypertension, hyperlipidemia, depression, anxiety presenting to the emergency department for generalized weakness and falls. reported by daughter that is bedside 6 falls in 2 weeks.
once found in stool. unsure of down time. lives on his own. refuses to go to medical appointments. ?taking his medications. per daughter has noted a progressive decline in the last several months and more rapidly occurring within the last 3months.
its hard for him to follow commands and to comprehend. no known hx of cva nor dementia.
she also reports that he was an alcohol but note sure when his last drink was. use a lot of chewing tobacco. no drug use.
Medical History
Past Medical History
Past Medical History: Reports HTN and Hypercholesterolemia
Additional Past Medical History:
cauti hx, prostate ca s/p chronic beach, depression and anxiety, lumbar stenosis, squamous cell carcinoma
Past Surgical History: Reports Urological
Social History
Tobacco: Other (former smoker, now chewing tabacco)
Alcohol: Former
Drug: None
Living: Alone
Family History
Family History: Other
Allergies / Home Medications
Allergies reflects when Allergies were last updated in [employer].
Home Medications with original date entered in [employer]
Allergy/Medication List:
nkda
Review of Systems
-
History Source: Patient and Family
A 12 point ROS was completed and negative except as noted: Yes
Physical Exam
Vital Signs
Vital Signs
Temp Pulse Resp BP Pulse Ox
97.6 F 88 24 127/91 94
05/05/24 11:24 05/05/24 15:45 05/05/24 15:45 05/05/24 14:32 05/05/24 14:30
Physical Exam
General: Well Developed, Well Nourished, No Apparent Distress and Other ([place], unable to follow commands well )
HEENT: NormoCephalic, Anicteric and Moist mucous membranes
Respiratory: Clear
Cardiac: S1/S2 and Murmur (isaac at rusb, grade 2/6)
Breast: Deferred by me
GI: Soft, Non Tender, Non Distended and Normal Bowel Sounds
Rectal: Deferred by Provider
Genito-urinary: Deferred by me
Musculoskeletal: No Clubbing and No Cyanosis
Skin: Warm and Dry
Neuro: Awake, Alert, Oriented and No Motor Deficits (unable to do heel to cooper as difficult to follow instructions, difficult to plantar flex as he was unable to comprehend, however when i went back to do it again was able to complete)
Psych: Calm
Laboratory Results
-
05/05/24 12:39
05/05/24 12:39
Laboratory Results
Total Bilirubin 1.0 mg/dl (0.2-1.3) 05/05/24 12:39
AST 37 U/L (17-59) 05/05/24 12:39
ALT 21 U/L (0-50) 05/05/24 12:39
Alkaline Phosphatase 113 U/L (38-126) 05/05/24 12:39
Data Reviewed
-
Diagnostic Radiology: Image Personally Visualized and interpreted, Report Reviewed by me, Discussed with Patient and Discussed with Family
Lab Data: Labs Reviewed by me, Discussed with Patient and Discussed with Family
Old Records: Reviewed
Impression/Plan
-
IMPRESSION:
ambulatory dysfunction
falls
chronic beach
prostate ca
uti vs asymtomatic bacteruria
htn
hld
anxiety
depression
PLAN:
ambulatory dysfunction with associated falls unclear if there is underlying neurological vs infectious issue vs dementia vs medication induced as on hydrocodone/aceatminophen.
- - xray reviewed without evidence of fracture or dislocation
-will check mri
-check ck
-remove beach, insert new one and send ua/ucx
-check tsh, b12, folate
-pt/ot
-hold hydrocodone/acetaminophen
-fall precautions
prostate ca s/p chronic beach
-replace the old one with new and send ua/ucx
-if + will consider atb at that point
htn
-continue antihypertensive
hld
-continue statins
anxiety/depression
-continue venlafaxine
dvt ppx: hsq
dnr/dni
kota Schuster [phone]
gmf, when cleared for dc likely for snf
[2024-05-05 18:56] LABS: Creatine Phosphokinase 109 U/L (55-170)
[2024-05-05] MEDS: COREG 3.125 MG PO (20:33)
[2024-05-05] MEDS: SENOKOT PO (20:33)
[2024-05-05] MEDS: HEPARIN 5000 UNITS SC (20:35)
--- NOTE | 2024-05-05 22:30 | PTCARENOTE ---
Received patient from ED via stretcher at 1930. Patient pulled over from stretcher to bed with assistance. Patient is AAOx3, forgetful, no current complaints of pain. Oriented patient to room and call adams placed within reach. Chronic beach draining
sallie urine, replaced per MD order.
[2024-05-06 03:49] LABS: Urine Albumin 1+ (Neg - Trace); Urine Bilirubin Negative (Negative); Urine Character Slightly Cloudy (Clear); Urine Color Yellow; Urine Glucose Negative (Negative); Urine Ketone 2+ (Negative); Urine Leukocyte 2+ (Negative); Urine Nitrite Positive (Negative); Urine Occult Blood 4+ (Negative); Urine Specific Gravity 1.025 (<1.030); Urine Urobilinogen Negative (Neg - 1+)
[2024-05-06 04:18] LABS: Urine Bacteria Many (Negative); Urine Red Blood Cell 30-40 /HPF (0-2); Urine Squamous Cell 0-2 /LPF (Few); Urine White Cell 40-50 /HPF (0-5)
--- NOTE | 2024-05-06 05:16 | PTCARENOTE ---
Patient yelling out, hallucinating, stating there is a bird on his side table. Garbled speech at times, patient reports his 'dentures don't fit'. Redirected and reoriented patient. ENERGY TECHNICIAN made aware, psychiatry consult added. Plan of care ongoing.
[2024-05-06 07:30] VITALS: BP 157/86
[2024-05-06 08:10] LABS: Hematocrit 36.5 % (39.0-52.0); Hemoglobin 11.9 g/dL (13.0-18.0); Mean Corp Hgb Conc. 32.6 g/dL (33.0-37.0); Mean Corpuscular Hgb 29.3 pg (27.0-31.0); Mean Corpuscular Volume 89.9 fL (80.0-94.0); Platelet Count 341 10^3/uL (130-400); Red Blood Cell Count 4.06 10^6/uL (4.70-6.10); Red Cell Dist. Width 14.2 % (11.5-14.5); White Blood Cell Count 9.4 10^3/uL (4.8-10.8)
[2024-05-06] MEDS: ASPIR LOW (ENTERIC COATED) 81 MG PO (08:41)
[2024-05-06] MEDS: CLARITIN 10 MG PO (08:42)
[2024-05-06] MEDS: COLACE 100 MG PO (08:42)
[2024-05-06] MEDS: EFFEXOR XR 225 MG PO (08:42)
[2024-05-06] MEDS: COREG 3.125 MG PO ×2 (08:43→20:32)
[2024-05-06] MEDS: FEOSOL 325 MG PO (08:43)
[2024-05-06] MEDS: SENOKOT PO (08:44)
[2024-05-06] MEDS: HEPARIN 5000 UNITS SC ×2 (08:44→20:31)
[2024-05-06 09:25] LABS: Blood Urea Nitrogen 24 mg/dl (9-20); Calcium 9.8 mg/dl (8.4-10.2); Carbon Dioxide 27 mmol/L (22-30); Chloride 96 mmol/L (98-107); Estimated Creatinine Clearance 51 ml/min; Glucose 69 mg/dl (70-99); Potassium 4.1 mmol/L (3.5-5.1); Sodium 134 mmol/L (135-145); eGFR > 60.00
[2024-05-06 11:00] VITALS: BP 105/76; BP 156/77; PULSE 102; PULSE 89
--- NOTE | 2024-05-06 11:27 | W.PN.HOSP.TC ---
Addendum entered and electronically signed by Ortiz Wu MD 05/06/24 11:41:
psych consulted for dementia
Original Note:
Today's Communication/Plan
-
check orthostatics
continue pt/ot
cm to begin placement
Assessment / Plan
Assessment / Plan
ambulatory dysfunction with associated falls
- - xray reviewed without evidence of fracture or dislocation
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
- pt/ot marilyn rec snf, for which I agree as he presented with 6falls in the recent past.
- check orthostatics
prostate ca s/p chronic beach
-replace the old one with new and send ua/ucx
-even after beach was replace, urine still dirty, this likely represents colonization, will await urine culture
-monitor off of antibiotics
htn
-continue antihypertensive
hld
-continue statins
anxiety/depression
-continue venlafaxine
dvt ppx: hsq
dnr/dni
kota Schuster [phone]
gmf
for snf when bed available
Anticipated Discharge: Within 24 hours
Subjective/Interval History
-
Date of Service: May 06, 2024
Seen and examined. No new complaints. No acute overnight events.
Discussed with nursing stated that he was sundowning however very much redirectable. Without evidence of agitation
Objective Data
-
Labs:
Laboratory Results
05/06/24
07:47
WBC 9.4
Hgb 11.9 L
Hct 36.5 L
Plt Count 341
Sodium 134 L
Potassium 4.1
Chloride 96 L
Carbon Dioxide 27
BUN 24 H
Creatinine 1.1
Glucose 69 L
Calcium 9.8
Vital Signs:
Vital Signs
Temp Pulse Resp BP Pulse Ox
98.1 F 88 18 157/86 94
05/06/24 07:30 05/06/24 08:43 05/06/24 07:30 05/06/24 08:43 05/06/24 08:30
I&O
05/05/24 05/06/24 05/07/24
06:59 06:59 06:59
Intake Total 240 / 240
Output Total 190 / 190
Balance 50 / 50
MRI
IMPRESSION: Examination is limited by moderate motion artifact.
Also, there is a focus of susceptibility artifact and artifactual anatomic distortion from a small metallic foreign body within the left superior and lateral periorbital soft tissues, as seen on CT of the head of November 14, 2022. This artifact is
also present on previous MRI of the brain from August 03, 2021.
Given the limitation of motion, no evidence for acute intracranial abnormality, with no findings to suggest an area of acute to subacute infarction.
Moderate diffuse atrophy. Moderate leukomalacia.
[2024-05-06 11:36] LABS: TSH Reflex To Free T4 1.16 uIU/ml (0.47-4.68)
[2024-05-06 12:12] LABS: Folate > 20.0 ng/ml (2.76-20)
--- NOTE | 2024-05-06 12:59 | CON.MD ---
Consultation - Medical
-
patient seen chart reviewed. spoke with nursing and with d by telephone. the patient was brought to [facility] weakness and falling. he has hx prostate ca and has permanent beach. HE LIVES ALONE not with family as it says in admitting notes. d tells me
that he has help three days weekly and she and her d pitch in to help him as well. he does not drive. he has been noted to be struggling with decreased mental acuity in recent months and the family fears he cannot live alone any longer. tee tells me
pat asking her where his was and she has been six years (he told me today is decreased, he was ox3 and he was able to tell me he had three chidren which is true). the patient did also tell me he had fallen and that was why he was
here . the patient has taken venlafaxine for several years and recently wellbutrin was added. he was unable to give me details about his medical illnesses and medications. tee tells me he does take opiates (hydrocodone apap) for pain but he had not
used them until this past weekend. tee tells me she does not believe he was taking them in the past two weeks and he fell about six times. the patient did not appear to be acutely psychotic. he denies hearing things. he did hav some agitation last
evening but nursing tells me he is pretty cooperative today
past psych hx see above never dx formally w dementia but d noted decline in mental status
medical see above hx thn hld weakness prostate ca /beach squamous cell ca lumbar stenosis w chronic pain see mri result w foreign body in frontal area diffuse atrophy and leukomalacia limited by motion . constipation meclizine for dizziness
bp 156/77 no ecg recently
substance abuse hx alcoholism d says does not believe drinking now
fh non contributory
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
mse alert ox3 'president binger' hard to understand speech often but attempted to be attentive thought process seemed goal oriented no overt psychosis memory seems impaired mood neutral affect ok no si insight judgment impaired cognition impaired
dx dementia w hx behavioral distrubance currently cooperative hx depression/anxiety
recommendation d okays use of risperdal prn explained issue of inc risk of cv events in elderly w dementia (black box warning) patient does not seem to me to be capable of living alone. family seems to have reached this conclusion. cm should
discuss options w them. would check ecg tsh b12 folate levels if not already done consider aricept or namenda. psych will look in on him tomorrow.
[2024-05-06 13:13] VITALS: BMI 22.4
[2024-05-06 13:16] LABS: Vitamin B12 > 1000 pg/ml (239-931)
[2024-05-06 15:00] VITALS: BP 127/71
[2024-05-06 15:33] VITALS: BP 109/66; BP 131/79; PULSE 101; PULSE 90
[2024-05-06] MEDS: SENOKOT 17.2 MG PO (20:37)
[2024-05-06 23:31] VITALS: BP 158/85
[2024-05-07 07:45] VITALS: BP 148/91; BP 153/84; PULSE 81; PULSE 88
[2024-05-07] MEDS: FEOSOL 325 MG PO (08:05)
[2024-05-07] MEDS: SENOKOT 17.2 MG PO ×2 (08:05→20:43)
[2024-05-07] MEDS: COLACE 100 MG PO (08:05)
[2024-05-07] MEDS: CLARITIN 10 MG PO (08:05)
[2024-05-07] MEDS: ASPIR LOW (ENTERIC COATED) 81 MG PO (08:05)
[2024-05-07] MEDS: HEPARIN 5000 UNITS SC ×2 (08:05→20:43)
[2024-05-07] MEDS: EFFEXOR XR 225 MG PO (08:05)
[2024-05-07] MEDS: COREG 3.125 MG PO ×2 (08:05→20:45)
--- NOTE | 2024-05-07 11:57 | W.PN.UPDATE ---
Update Note
Progress Note Update
patient seen chart reviewed. spoke with nursing. the patient was lying in bed. he had not touched his breakfast. he said he was 'not hungry.' we had a discussion of what he liked to eat for breakfast and he concluded he would try to eat some of
what was on the tray. he understands he is here bc he fell. nursing tells me PT tried yesterday to get him oob without success. he really was impaired in ability to stand at that point and that they will try again today. the patient is fully
oriented but clearly there is some cognitive decline. he has generally been cooperative. he has not required prn risperdal which has been ordered. nursing reports not sleeping well. have added melatonin 3 mg q hs. patient likely will require snf
and perhaps disposition to a supervised living arrangement but that is up to family . psych will sign off
--- NOTE | 2024-05-07 12:46 | CM ---
CM spoke with patients daughter/LIZZY Walsh [phone], discussed PT/OT recommendations of SNF. Daughter agreeable, reports patient will need transition to LTC and will likely need to transition to Medicaid. Daughter requesting referral to [facility]
SNF as patient has been there in the past, requesting referrals to additional facilities in [place] and [facility]. Daughter reports patient lives alone and has fallen six times in the past two weeks, was found at times with no pants on which
is not typical for patient. 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 CM spoke with nurse, patient remains on [facility]. Referrals sent in [facility], patient will need insurance auth once
facility found. CM will continue to follow for all discharge planning needs.
Plan; SNF pending accepting facility, will need insurance auth.
[2024-05-07 14:55] VITALS: BP 118/72; BP 137/75; BP 147/88; BP 82/61; PULSE 80; PULSE 87; PULSE 90; O2SAT 98
--- NOTE | 2024-05-07 14:55 | W.PN.HOSP.TC ---
Today's Communication/Plan
-
pending snf
Assessment / Plan
Assessment / Plan
ambulatory dysfunction with associated falls
- - xray reviewed without evidence of fracture or dislocation
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
- pt/ot marilyn rec snf, for which I agree as he presented with 6falls in the recent past.
- check orthostatics
prostate ca s/p chronic beach
-replace the old one with new and send ua/ucx
-even after beach was replace, urine still dirty, this likely represents colonization, will await urine culture
-monitor off of antibiotics
htn
-continue antihypertensive
hld
-continue statins
anxiety/depression
-continue venlafaxine
dvt ppx: hsq
dnr/dni
kota Schuster [phone]
gmf
for snf when bed available
Anticipated Discharge: 24 - 48 hours
Subjective/Interval History
-
Date of Service: May 07, 2024
seen nad examined
non new complaints
no acute overnight events
Objective Data
-
Vital Signs:
Vital Signs
Temp Pulse Resp BP Pulse Ox
97.6 F 81 18 153/84 96
05/07/24 07:45 05/07/24 08:05 05/07/24 07:45 05/07/24 08:05 05/07/24 09:44
I&O
05/06/24 05/07/24 05/08/24
06:59 06:59 06:59
Intake Total 240 / 240 600 / 600
Output Total 190 / 190 525 / 525
Balance 50 / 50 75 / 75
[2024-05-07 15:04] VITALS: BP 162/89
[2024-05-07 15:50] VITALS: BP 118/72; BP 137/75; BP 147/88; BP 82/61; PULSE 81; PULSE 87; PULSE 90; O2SAT 98
[2024-05-07] MEDS: TYLENOL 650 MG PO (16:26)
[2024-05-07] MEDS: MELATONIN 3 MG PO (21:31)
[2024-05-07 23:31] VITALS: BP 147/84
[2024-05-08 07:32] VITALS: BP 171/99
[2024-05-08 07:33] VITALS: BP 129/87; BP 149/87; BP 171/99; PULSE 103; PULSE 119; PULSE 97
[2024-05-08 08:33] VITALS: BP 129/87; BP 149/87; BP 171/99; PULSE 103; PULSE 119; PULSE 97
[2024-05-08] MEDS: EFFEXOR XR 225 MG PO (08:58)
[2024-05-08] MEDS: COREG 3.125 MG PO ×2 (08:58→19:50)
[2024-05-08] MEDS: SENOKOT 17.2 MG PO ×2 (08:58→19:47)
[2024-05-08] MEDS: CLARITIN 10 MG PO (08:58)
[2024-05-08] MEDS: ASPIR LOW (ENTERIC COATED) 81 MG PO (08:59)
[2024-05-08] MEDS: FEOSOL 325 MG PO (08:59)
[2024-05-08] MEDS: HEPARIN 5000 UNITS SC ×2 (08:59→19:46)
[2024-05-08] MEDS: COLACE 100 MG PO (08:59)
--- NOTE | 2024-05-08 09:10 | PTCARENOTE ---
pt off the video monitor as of 7 am.
[2024-05-08] MEDS: DULCOLAX 10 MG RECTAL (14:10)
--- NOTE | 2024-05-08 14:56 | W.PN.HOSP.TC ---
Today's Communication/Plan
-
Awaiting SNF
Assessment / Plan
Assessment / Plan
ambulatory dysfunction with associated falls
- - xray reviewed without evidence of fracture or dislocation
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
- pt/ot marilyn rec snf, for which I agree as he presented with 6falls in the recent past.
- check orthostatics
prostate ca s/p chronic beach
-replace the old one with new and send ua/ucx
-even after beach was replace, urine still dirty, this likely represents colonization, will await urine culture
-monitor off of antibiotics
htn
-continue antihypertensive
hld
-continue statins
anxiety/depression
-continue venlafaxine
dvt ppx: hsq
dnr/dni
kota Schuster [phone]
gmf
for snf when bed available
Anticipated Discharge: Within 24 hours
Subjective/Interval History
-
Date of Service: May 08, 2024
Seen and examined. No new complaints. No acute overnight events.
Objective Data
-
Vital Signs:
Vital Signs
Temp Pulse Resp BP Pulse Ox
97.9 F 97 16 171/99 96
05/08/24 07:32 05/08/24 08:58 05/08/24 07:32 05/08/24 08:58 05/08/24 11:50
I&O
05/07/24 05/08/24 05/09/24
06:59 06:59 06:59
Intake Total 600 / 600 1140 / 1140
Output Total 525 / 525 500 / 500
Balance 75 / 75 640 / 640
[2024-05-08 15:40] VITALS: BP 146/84
--- NOTE | 2024-05-08 19:02 | PTCARENOTE ---
pt c/o pain/burning in the tip of the penis. pt has a chronic beach catheter. made aware. no new orders at this time.
[2024-05-08] MEDS: MELATONIN 3 MG PO (22:08)
[2024-05-08 23:41] VITALS: BP 135/80
[2024-05-09] VITALS (7 sets, daily range): BP systolic 112–161; BP diastolic 71–98; PULSE 88–119; O2SAT 96–100
[2024-05-09] MEDS: CLARITIN 10 MG PO (07:46)
[2024-05-09] MEDS: EFFEXOR XR 225 MG PO (07:46)
[2024-05-09] MEDS: TYLENOL 650 MG PO (07:46)
[2024-05-09] MEDS: COREG 3.125 MG PO ×2 (07:47→20:46)
[2024-05-09] MEDS: COLACE 100 MG PO (07:47)
[2024-05-09] MEDS: SENOKOT 17.2 MG PO ×2 (07:47→20:47)
[2024-05-09] MEDS: FEOSOL 325 MG PO (07:47)
[2024-05-09] MEDS: ASPIR LOW (ENTERIC COATED) 81 MG PO (07:47)
[2024-05-09] MEDS: HEPARIN 5000 UNITS SC ×2 (07:47→20:47)
[2024-05-09] MEDS: ProAIR HFA INHALER 2 PUFF INH (08:00)
--- NOTE | 2024-05-09 15:46 | W.PN.HOSP.TC ---
Today's Communication/Plan
-
Start lisinopril
Pending SNF
Assessment / Plan
Assessment / Plan
ambulatory dysfunction with associated falls
- - xray reviewed without evidence of fracture or dislocation
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
- pt/ot marilyn rec snf, for which I agree as he presented with 6falls in the recent past.
- check orthostatics
prostate ca s/p chronic beach
-replace the old one with new and send ua/ucx
-even after beach was replace, urine still dirty, this likely represents colonization, will await urine culture
-monitor off of antibiotics
htn
-continue antihypertensive
hld
-continue statins
anxiety/depression
-continue venlafaxine
dvt ppx: hsq
dnr/dni
poa Jillian Landen [phone]
gmf
for snf when bed available
Anticipated Discharge: 24 - 48 hours
Subjective/Interval History
-
Date of Service: May 09, 2024
Seen and examined. No new complaints. No acute overnight events.
Objective Data
-
Vital Signs:
Vital Signs
Temp Pulse Resp BP Pulse Ox
97.3 F 98 18 161/97 98
05/09/24 07:49 05/09/24 08:03 05/09/24 08:03 05/09/24 07:49 05/09/24 08:03
I&O
05/08/24 05/09/24 05/10/24
06:59 06:59 06:59
Intake Total 1140 / 1140 420 / 420
Output Total 500 / 500 425 / 425
Balance 640 / 640 -5 / -5
Physical Exam
-
General: Well Developed, Well Nourished and No Apparent Distress
HEENT: Normocephalic, Atraumatic and Moist Mucous Membranes
Respiratory: Clear to Auscultation
Cardiac: Regular Rhythm and S1/S2
Breast: Deferred by me
GI: Soft, Nontender, Nondistended and Normal Bowel Sounds
Rectal: Deferred by Provider
Musculoskeletal: No Clubbing, No Cyanosis and No Edema
Neuro: Awake, Alert and Oriented
--- NOTE | 2024-05-09 15:58 | CM ---
Addendum entered by Ene Tesfaye 05/09/24 16:50:
Spoke to Mikaela from [facility], spoke with daughter, CM can initiate auth. Will submit auth through [employer].
Original Note:
CM spoke with Mikaela from [facility] ([phone]), would like to talk to patients daughter Jillian in regards to LTC transition, can likely offer patient a short term bed. PT/OT assessed patient today for updated notes. Per Mikaela, voicemail
was left for patients daughter, asking CM hold off on auth until confirming with daughter. NPI for facility [id number], Dr. Dick [id number]. CM will await to hear from Mikaela at [facility] to initiate auth.
Plan; [facility], awaiting confirmation facility can accept before submitting for auth.
[2024-05-09] MEDS: ZESTRIL PO (17:20)
[2024-05-09] MEDS: MELATONIN 3 MG PO (21:00)
[2024-05-10 06:00] VITALS: BMI 22.0
[2024-05-10 07:30] VITALS: BP 138/87
[2024-05-10 09:00] VITALS: BP 135/85; BP 136/84; BP 163/99; PULSE 106; PULSE 107; PULSE 116
[2024-05-10] MEDS: ASPIR LOW (ENTERIC COATED) 81 MG PO (09:43)
[2024-05-10] MEDS: HEPARIN 5000 UNITS SC ×2 (09:43→20:40)
[2024-05-10] MEDS: COREG 3.125 MG PO ×2 (09:43→20:39)
[2024-05-10] MEDS: FEOSOL 325 MG PO (09:43)
[2024-05-10] MEDS: COLACE 100 MG PO (09:43)
[2024-05-10] MEDS: CLARITIN 10 MG PO (09:43)
[2024-05-10] MEDS: EFFEXOR XR 225 MG PO (09:43)
[2024-05-10] MEDS: SENOKOT 17.2 MG PO ×2 (09:44→20:39)
[2024-05-10] MEDS: ZESTRIL 2.5 MG PO (09:44)
[2024-05-10] MEDS: FLUSH (NSS) 1 FLUSH IV (09:45)
--- NOTE | 2024-05-10 12:18 | CM ---
CHRISTOPH contacted Robi four times today to update the precertification. Multiple disconnections after completing the prompts, as well as several connections to 'off shore' representatives who could not work on this account.
Approval from 05/12/2024-05/24/2024 Certification #[id number]. Patient is ready for discharge today, so need to update the dates of service for transfer to [facility].
I spoke with Dru in precertification to update the dates of service, then disconnected again. I had provided my cell phone number and await her return call at this time.
Anticipate w/c van transport.
Will continue to pursue authorization for transfer today.
[2024-05-10] MEDS: TYLENOL 650 MG PO (14:24)
--- NOTE | 2024-05-10 14:53 | W.PN.HOSP.TC ---
Today's Communication/Plan
-
provide bowel reg thats ordered pleased
Assessment / Plan
Assessment / Plan
ambulatory dysfunction with associated falls
- - xray reviewed without evidence of fracture or dislocation
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
- pt/ot marilyn rec snf, for which I agree as he presented with 6falls in the recent past.
- check orthostatics
prostate ca s/p chronic beach
-replace the old one with new and send ua/ucx
-even after beach was replace, urine still dirty, this likely represents colonization, will await urine culture
-monitor off of antibiotics
htn
-continue antihypertensive
hld
-continue statins
anxiety/depression
-continue venlafaxine
dvt ppx: hsq
dnr/dni
pogemma Jillian Landen [phone]
gmf
for snf when bed available
Anticipated Discharge: 24 - 48 hours
Subjective/Interval History
-
Date of Service: May 10, 2024
seen and examined. no new complaints. no acute overniftge events
Objective Data
-
Vital Signs:
Vital Signs
Temp Pulse Resp BP Pulse Ox
98.9 F 103 20 138/87 94
05/10/24 07:30 05/10/24 09:43 05/10/24 07:30 05/10/24 09:43 05/10/24 13:52
I&O
05/09/24 05/10/24 05/11/24
06:59 06:59 06:59
Intake Total 420 / 420 480 / 480
Output Total 425 / 425 425 / 425
Balance -5 / -5 55 / 55
[2024-05-10 15:30] VITALS: BP 121/80
[2024-05-10] MEDS: MIRALAX 17 GRAMS PO (17:23)
[2024-05-10 19:50] VITALS: BP 110/77; BP 136/77; PULSE 79; PULSE 93
[2024-05-10] MEDS: MELATONIN 3 MG PO (21:23)
[2024-05-10 23:59] VITALS: BP 94/62
[2024-05-11 04:52] VITALS: BP 109/62
[2024-05-11 06:00] VITALS: BMI 22.0
[2024-05-11 07:55] VITALS: BP 154/98
[2024-05-11] MEDS: DULCOLAX 10 MG RECTAL (09:48)
[2024-05-11] MEDS: ASPIR LOW (ENTERIC COATED) 81 MG PO (10:00)
[2024-05-11] MEDS: ZESTRIL PO (10:00)
[2024-05-11] MEDS: COLACE 100 MG PO (10:00)
[2024-05-11] MEDS: COREG PO (10:00)
[2024-05-11] MEDS: CLARITIN 10 MG PO (10:00)
[2024-05-11] MEDS: HEPARIN 5000 UNITS SC ×2 (10:01→20:52)
[2024-05-11] MEDS: EFFEXOR XR 225 MG PO (10:01)
[2024-05-11] MEDS: FEOSOL 325 MG PO (10:01)
[2024-05-11] MEDS: FLUSH (NSS) 1 FLUSH IV (10:02)
[2024-05-11] MEDS: SENOKOT 17.2 MG PO ×2 (10:02→20:54)
[2024-05-11 10:30] VITALS: BP 112/70; BP 138/86; BP 154/98; PULSE 103; PULSE 84; PULSE 96
--- NOTE | 2024-05-11 10:30 | PTCARENOTE ---
Pt's orthostatic BPs were as follows this morning: Supine 154/98, HR 96, Sitting 138/86, HR 103, Standing 112/70, HR 84. Pt felt dizzy, not room spinning from supine to sitting and then sitting to standing also dizzy. Discussed with Dr. Alcantar
Wu who indicated to hold pt's Coreg and Lisinopril for this morning, will order abdominal binder as well. Udpated pt on plan, will monitor.
[2024-05-11] MEDS: ANTIVERT 12.5 MG PO (11:51)
[2024-05-11] MEDS: TYLENOL 650 MG PO ×2 (11:51→22:35)
--- NOTE | 2024-05-11 11:53 | W.PN.HOSP.TC ---
Today's Communication/Plan
-
pending dc to snf
repeat orthostatic
start compression stockign anf abd binder
Assessment / Plan
Assessment / Plan
ambulatory dysfunction with associated falls
- - xray reviewed without evidence of fracture or dislocation
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
- pt/ot marilyn rec snf, for which I agree as he presented with 6falls in the recent past.
Orthostatic positive
-Provide abdominal binder compression stockings
-As needed mido
prostate ca s/p chronic beach
-replace the old one with new and send ua/ucx
-even after beach was replace, urine still dirty, this likely represents colonization, will await urine culture
-monitor off of antibiotics
htn
-continue antihypertensive
hld
-continue statins
anxiety/depression
-continue venlafaxine
dvt ppx: hsq
dnr/dni
kota Schuster [phone]
gmf
for snf when bed available
Anticipated Discharge: Within 24 hours
Subjective/Interval History
-
Date of Service: May 11, 2024
Seen and examined adequate sleep no new complaints no acute overnight events.
States he had a bowel
Disease when going from supine to sitting position
Objective Data
-
Vital Signs:
Vital Signs
Temp Pulse Resp BP Pulse Ox
98.2 F 96 20 154/98 95
05/11/24 07:55 05/11/24 07:55 05/11/24 07:55 05/11/24 07:55 05/11/24 07:55
I&O
05/10/24 05/11/24 05/12/24
06:59 06:59 06:59
Intake Total 480 / 480 240 / 240
Output Total 425 / 425 200 / 200 275 / 275
Balance 55 / 55 40 / 40 -275 / -275
[2024-05-11 15:00] VITALS: BP 147/76
[2024-05-11] MEDS: MIRALAX 17 GRAMS PO (16:14)
[2024-05-11] MEDS: COREG 3.125 MG PO (20:52)
[2024-05-11] MEDS: MELATONIN 3 MG PO (21:00)
[2024-05-11 23:53] VITALS: BP 115/77
[2024-05-12 06:00] VITALS: BMI 22.0
[2024-05-12 07:30] VITALS: BP 166/91; BP 175/95; PULSE 91; PULSE 92
[2024-05-12] MEDS: ASPIR LOW (ENTERIC COATED) 81 MG PO (08:50)
[2024-05-12] MEDS: HEPARIN 5000 UNITS SC (08:50)
[2024-05-12] MEDS: FEOSOL 325 MG PO (08:50)
[2024-05-12] MEDS: EFFEXOR XR 225 MG PO (08:50)
[2024-05-12] MEDS: CLARITIN 10 MG PO (08:50)
[2024-05-12] MEDS: ZESTRIL 2.5 MG PO (08:50)
[2024-05-12] MEDS: COREG 3.125 MG PO (08:50)
[2024-05-12] MEDS: SENOKOT 17.2 MG PO (08:50)
[2024-05-12] MEDS: COLACE 100 MG PO (08:50)
--- NOTE | 2024-05-12 09:20 | CM ---
Addendum entered by Ene Tesfaye 05/12/24 14:13:
Ambulance transport scheduled for 4:00 p.m. Patients daughter Jillian made aware, Sivan in admissions at SNF made aware.
Original Note:
Auth approved #[id number], 05/12-05/24, next review 05/24 to Dorene Morelia, phone [phone], fax [phone]. CM spoke with Sivan from [facility] ([phone]), provided auth information. CM spoke with patients daughter Jillian, discussed
discharge to SNF, patient will need ambulance transport. CM reviewed IMM with daughter, daughter understands and is in agreement with discharge. CM will continue to follow for all discharge planning needs.
Plan; [facility], will need ambulance transport.
Report: [phone] ext [phone]
[2024-05-12] MEDS: ROCEPHIN 1000 MG IV (10:01)
[2024-05-12] MEDS: STERILE WATER FOR INJECTION 10 ML IV (10:01)
[2024-05-12] MEDS: ANTIVERT 12.5 MG PO (12:33)
[2024-05-12] MEDS: SENOKOT-S 1 TABLET PO (12:33)
--- NOTE | 2024-05-12 14:05 | W.DS.TRANS ---
DC Summary - Acid Splicer
-
Discharge Instructions:
Discharge Diagnosis/Procedures Ambulatory dysfunction
Diet Regular
Instructions:
Stand-Alone Forms:
Changes to Home Medications: No
Discharge Medications:
DC Medications w/original date entered in [facility]
aspirin 81 mg tablet,delayed release 81 mg PO DAILY Blood Clot Prevention/Tx 03/24/24
carvedilol 3.125 mg tablet 3.125 mg PO BID Heart Failure 03/24/24
venlafaxine 225 mg tablet,extended release 24 hr 225 mg PO DAILY Depression 03/24/24
albuterol sulfate 90 mcg/actuation aerosol inhaler 2 puff inhalation R Q4HPRN PRN sob 05/05/24
atorvastatin 10 mg tablet (Lipitor) 10 mg PO HS High Cholesterol 05/05/24
bupropion HCl 150 mg 24 hr tablet, extended release (Wellbutrin XL) 150 mg PO DAILY Depression 05/05/24
docusate sodium 100 mg capsule (Colace) 100 mg PO DAILY Constipation 05/05/24
ferrous sulfate 325 mg (65 mg iron) tablet 325 mg PO DAILY Supplement 05/05/24
loratadine 10 mg tablet (Claritin) 10 mg PO DAILY Allergies 05/05/24
meclizine 12.5 mg tablet 12.5 mg PO TIDPRN PRN dizzyness 05/05/24
sennosides 8.6 mg tablet (senna) 17.2 mg PO BID Constipation 05/05/24
acetaminophen 325 mg tablet 650 mg (2 x 325 mg) PO Q6HPRN PRN mild pain/ fever>100.5F #30 tabs 05/12/24
polyethylene glycol 3350 17 gram oral powder packet (HealthyLax) 17 g PO DAILYPRN PRN constipation #30 ea 05/12/24
Home Medication Changes
Pending Results: No
[2024-05-12 15:15] VITALS: BP 105/60
== END 2024-05-12 17:02 ==
LOC: 4 EAST ACU 17:43
PROVIDERS: Emergency Medicine; ADMITTING PHYSICIAN Hospitalist; ATTENDING PHYSICIAN Internal Medicine; EMERGENCY PHYSICIAN Student in an Organized Health Care Education/Training Program; FAMILY PHYSICIAN Family Medicine; OTHER PHYSICIAN Psychiatry & Neurology Psychiatry
DX: R53.1 Weakness (principal); R26.2 Difficulty in walking, not elsewhere classified; M53.3 Sacrococcygeal disorders, not elsewhere classified; R52 Pain, unspecified; R05.3 Chronic cough; W19.XXXA Unspecified fall, initial encounter; Y93.9 Activity, unspecified; Y92.9 Unspecified place or not applicable; C61 Malignant neoplasm of prostate; R33.8 Other retention of urine; B96.20 Unspecified Escherichia coli [E. coli] as the cause of diseases classified elsewhere; F03.918 Unspecified dementia, unspecified severity, with other behavioral disturbance; F41.9 Anxiety disorder, unspecified; I10 Essential (primary) hypertension; E78.00 Pure hypercholesterolemia, unspecified; E78.5 Hyperlipidemia, unspecified; F32.A Depression, unspecified; F10.11 Alcohol abuse, in remission; F17.220 Nicotine dependence, chewing tobacco, uncomplicated; R06.02 Shortness of breath; M48.061 Spinal stenosis, lumbar region without neurogenic claudication; K44.9 Diaphragmatic hernia without obstruction or gangrene; R09.89 Other specified symptoms and signs involving the circulatory and respiratory systems; Z75.1 Person awaiting admission to adequate facility elsewhere; Z87.440 Personal history of urinary (tract) infections; Z79.82 Long term (current) use of aspirin; Z66 Do not resuscitate; Z60.2 Problems related to living alone; Z91.81 History of falling
CPT/HCPCS: 70551; 71045; 72170; 72220; 80048; 80053; 81003; 81015; 82550; 82607; 82746; 84443; 85025; 85027; 87077; 87086; 87186; 93005; 94640; 97530; 97535; 99285; 99406; G0378